=== PATIENT | male | born 1950 | race Caucasian/White ===

== ENCOUNTER → 2020-10-09 10:20 | Outpatient (BNVA) | payer OTHER, SELFPAY | PROVIDERS: Visit Provider Physician Assistant | DX: S69.91XA Unspecified injury of right wrist, hand and finger(s), initial encounter (principal); W10.9XXA Fall (on) (from) unspecified stairs and steps, initial encounter | CPT/HCPCS: 29125; 73110; 99203 ==

== ENCOUNTER → 2020-10-16 09:25 | Outpatient (BNVA) | payer OTHER, SELFPAY | PROVIDERS: Visit Provider Physician Assistant | DX: S69.91XA Unspecified injury of right wrist, hand and finger(s), initial encounter (principal); W10.9XXA Fall (on) (from) unspecified stairs and steps, initial encounter | CPT/HCPCS: 99213 ==

== ENCOUNTER 2021-07-01 23:23 | Emergency (ER) | payer OTHER, SELFPAY ==
--- NOTE | 2021-07-01 23:44 | ECG_ITS ---
Test Reason : DYSPNEA Blood Pressure : / mmHG Vent. Rate : 079 BPM Atrial Rate : 079 BPM P-R Int : 142 ms QRS Dur : 102 ms QT Int : 414 ms P-R-T Axes : 025 039 186 degrees QTc Int : 474 ms Sinus rhythm with Premature atrial complexes Left ventricular hypertrophy with repolarization abnormality ( [place] product ) Nonspecific ST and T wave abnormality Abnormal ECG No previous ECGs available Referred By: Tita Wasserman Electronically Signed By:ОЛЬГА CHOUDHARY MD
--- NOTE | 2021-07-01 23:54 | ED_ITS ---
HPI - Skin/Abscess/Foreign Bdy General Chief complaint: General Medical Stated complaint: bleeding from pacemaker site Time Seen by Provider: 07/01/21 23:28 Source: patient, EMS and old records reviewed (came with DC summary from [facility]) Mode of arrival: EMS Limitations: other (poor historian ) History of Present Illness HPI narrative: 70 yo male admitted to [facility] from 06/03 to 07/01 for NSTEMI with 4V CABG ?unsure date and biotronic PPM for SSS 05/27 on plavix - comes after being DC from [facility] today to STR they report multiple dressing changes and bleeding from PPM continued - at this time dressing is saturated. Reports no change in activity no trauma did not lift, does not remember hitting the area - denies bleeding issues from the PPM during time at [facility] MD complaint: other (bleeding from PPM) Onset (ago): hour(s) (after DC from [facility]) Location: chest Severity: moderate Quality: dull Relieving factors: other (dressings) Exacerbating factors: none Context: recent illness Associated symptoms: other (cough sweats) Treatments prior to arrival: bandages (multiple changes) Related Data Allergies Allergy/AdvReac Type Severity Reaction Status Date / Time Unable to Assess Allergy Verified 07/01/21 23:44 Review of Systems Review of Systems: Constitutional : No Weight loss, No Fever, No Chills, pos Fatigue, No Malaise, pos sweats ENT/Mouth : No sore throat, No Rhinorrhea Eyes: No Eye Pain, No Swelling, No Redness Cardiovascular : No Chest Pain, No SOB, pos Dyspnea on Exertion, No Orthopnea, No Edema, No Palpitations Respiratory : pos Cough, No Sputum, No Wheezing Gastrointestinal : No Nausea, No Vomiting, No Diarrhea, No Constipation, No abdominal Pain, No Hematochezia, No Melena Genitourinary : No Dysuria, No Urinary Frequency, No Hematuria, Musculoskeletal : No joint pain, No Myalgias, No Joint Swelling Skin : No Skin Lesions, No rash, pos bleeding PPM site Neuro : pos Weakness, No Numbness, No Dizziness, No Headache Psych : No Anxiety/Panic, No Depression Heme/Lymph: No Bruising, No Bleeding,No Lymphadenopathy Endocrine : No Polyuria, No Polydipsia All other systems reviewed and are negative PMFSH Past Medical History Source: old records reviewed Medical History (Updated 07/02/21 @ 00:41 by Tita Wasserman DO) CAD (coronary artery disease) CKD (chronic kidney disease) COPD (chronic obstructive pulmonary disease) Diverticulitis HLD (hyperlipidemia) HTN (hypertension) Ischemic cardiomyopathy Surgical History (Updated 07/01/21 @ 23:57 by Tita Wasserman DO) History of colon resection Social History Social History (Updated 07/01/21 @ 23:57 by Tita Wasserman DO) Patient Tobacco Use Status: Tobacco use Unknown Use of substances other than those prescribed or required for medical reasons: No Advance Directives: No Advance Directives Information Provided: Yes Physical Exam Vital Signs: Vital Signs: Last Vital Signs Temp 98.1 F 07/02/21 03:58 Pulse 66 07/02/21 03:58 Resp 15 07/02/21 03:58 BP 151/67 H 07/02/21 03:58 Pulse Ox 99 07/02/21 03:58 Body Mass Index 21.2 Appearance: Alert. Oriented X3. No acute distress. Eyes: Pupils equal, round and reactive to light. ENT: Pharynx normal. Neck: Normal inspection. Neck supple. CVS: Normal heart rate and rhythm. Pulses normal. Chest: sternal incision c/d/i. L chest wall saturated abdominal pads x2 with blood leaking under tegaderm cover on arrival to ED Respiratory: No respiratory distress. Breath sounds diminished at the bases Abdomen: Soft and nontender. Skin: Skin warm and dry. palel skin color. Normal skin turgor. Extremities: No lower extremity edema. Neuro: Oriented X 3. No motor deficit. No sensory deficit. Course Course Course Narrative: hemoglobin 8.0 was 9.6 this AM / Hct 23.6 bleeding persists through the abd dressings VS stable persistent bleeding - call to [facility] for possible transfer [id number] accepted to [facility] transfer but cardiac surgeon Dr. King is requesting we try further manual pressure for 30+ minutes and if this stops the bleeding he can be DC home - aware of drop in H/H from this AM. 45 minutes direct pressure still bleeding saturated 2 abd pads, has had 2 sterile dressing changes while in ED for 2 hrs 25 minutes notified transfer line of pending transfer bled through another dressing in our ED 3rd - 1 abd pad in ED 3 hr 22 min MDM - Skin/Abscess/Foreign Bdy MDM Narrative Medical decision making narrative: 70 yo male just DC from [facility] with prolonged stay involved CABG / PPM he comes in with c/o bleeding at the PPM site which was new since his arrival today at the [facility] - no DOAC, denies trauma, LUE NV intact, he has reportedly per his reports bled through at least 3 dressings and a weight at [facility]. Direct pressure was applied on arrival for 10+ minutes then bulky dressing under sterile technique. Will obtain labs. If his bleeding persists will discuss with [facility] for possible transfer. Lab Data Result diagrams: 07/01/21 23:50 07/01/21 23:50 Labs: Lab Results 07/01/21 07/01/21 07/01/21 Range/Units 23:50 23:50 23:50 WBC 9.2 (4.8-10.8) X10*3/uL RBC 2.61 L (4.60-5.80) X10*6/uL Hgb 8.0 L (14.0-18.0) g/dl Hct 23.6 L (42.0-52.0) % MCV 90.4 (80.0-98.0) fL MCH 30.7 (27.0-33.0) pg MCHC 33.9 (31.0-36.0) g/dl RDW 13.5 (11.0-16.0) % Plt Count 269 (160-400) X10*3/uL MPV 10.7 (9.4-12.4) fL Immature Gran % (Auto) 0.3 (0.0-0.4) % Neut % (Auto) 75.7 H (45-73) % Lymph % (Auto) 9.9 L (20-40) % Cavalier % (Auto) 9.0 (2-11) % Eos % (Auto) 4.1 H (0-4) % Baso % (Auto) 1.0 (0-2) % Lymph # (Auto) 0.9 L (1.2-4.9) X10*3/uL Cavalier # (Auto) 0.8 (0.1-1.2) X10*3/uL Eos # (Auto) 0.4 (0.0-0.4) X10*3/uL Baso # (Auto) 0.1 (0.0-0.2) X10*3/uL Abs Immat Gran (auto) 0.03 (0.00-0.03) X10*3/uL Absolute Neuts (auto) 7.0 (2.0-8.3) x10*3/uL Absolute Nucleated RBC 0.000 (0.0-0.012) X10*3/uL Nucleated RBC % (auto) 0.0 (0.0-0.2) /100WBC PT (9.9-13.0) SEC INR (0.9-1.1) APTT (24.1-38.0) SEC Sodium 135 (135-145) mmol/L Potassium 4.3 (3.3-5.1) mmol/L Chloride 98 (96-108) mmol/L Carbon Dioxide 30 H (22-29) mmol/L Anion Gap 11 L (12-20) BUN 30 H (9-16) mg/dL Creatinine 1.12 (0.5-1.4) mg/dL Estim Creat Clear Calc 55.9 Estimated GFR > 60 Random Glucose 127 H (60-115) mg/dL Lactic Acid (0.5-2.0) mmol/L Calcium 7.7 L (8.4-10.2) mg/dL Magnesium 1.8 (1.6-2.6) mg/dL Total Bilirubin 0.2 (0.0-1.0) mg/dL Direct Bilirubin 0.2 (0.0-0.5) mg/dL AST 20 (5-37) U/L ALT 18 (0-40) U/L Alkaline Phosphatase 60 (39-117) U/L B-Natriuretic Peptide 2632 H (<100) pg/mL Total Protein 4.7 L (6.5-8.0) g/dL Albumin 2.4 L (3.5-5.0) g/dL COVID-19 ([facility]ION) (Negative) COVID-19 Clin Com 07/01/21 07/01/21 07/01/21 Range/Units 23:50 23:54 23:54 WBC (4.8-10.8) X10*3/uL RBC (4.60-5.80) X10*6/uL Hgb (14.0-18.0) g/dl Hct (42.0-52.0) % MCV (80.0-98.0) fL MCH (27.0-33.0) pg MCHC (31.0-36.0) g/dl RDW (11.0-16.0) % Plt Count (160-400) X10*3/uL MPV (9.4-12.4) fL Immature Gran % (Auto) (0.0-0.4) % Neut % (Auto) (45-73) % Lymph % (Auto) (20-40) % Cavalier % (Auto) (2-11) % Eos % (Auto) (0-4) % Baso % (Auto) (0-2) % Lymph # (Auto) (1.2-4.9) X10*3/uL Cav[place]ier # (Auto) (0.1-1.2) X10*3/uL Eos # (Auto) (0.0-0.4) X10*3/uL Baso # (Auto) (0.0-0.2) X10*3/uL Abs Immat Gran (auto) (0.00-0.03) X10*3/uL Absolute Neuts (auto) (2.0-8.3) x10*3/uL Absolute Nucleated RBC (0.0-0.012) X10*3/uL Nucleated RBC % (auto) (0.0-0.2) /100WBC PT 11.7 (9.9-13.0) SEC INR 1.0 (0.9-1.1) APTT 30.1 (24.1-38.0) SEC Sodium (135-145) mmol/L Potassium (3.3-5.1) mmol/L Chloride (96-108) mmol/L Carbon Dioxide (22-29) mmol/L Anion Gap (12-20) BUN (9-16) mg/dL Creatinine (0.5-1.4) mg/dL Estim Creat Clear Calc Estimated GFR Random Glucose (60-115) mg/dL Lactic Acid 0.9 (0.5-2.0) mmol/L Calcium (8.4-10.2) mg/dL Magnesium (1.6-2.6) mg/dL Total Bilirubin (0.0-1.0) mg/dL Direct Bilirubin (0.0-0.5) mg/dL AST (5-37) U/L ALT (0-40) U/L Alkaline Phosphatase (39-117) U/L B-Natriuretic Peptide (<100) pg/mL Total Protein (6.5-8.0) g/dL Albumin (3.5-5.0) g/dL COVID-19 (ZION) Negative (Negative) COVID-19 Clin Com See Note ECG Data Attestation: I personally reviewed and interpreted this ECG as follows: ECG interpretation date: 07/02/21 ECG interpretation time: 00:10 Interpretation: Rate: 79 Rhythm: NSR , PACs Anderson: normal LVH Normal P waves. Normal ABDI. Poor R wave progression ST T wave : no ALEX, inverted in inv and lateral leads qTC: normal prior studies: none available The study has been interpreted contemporaneously by me. . Critical Care Time Critical Care Time Critical Care Time: Yes Total Critical Care Time: 45 Attestation: review of records, medical consult, transfer to tertiary center I attest to this time spent taking care of the patient Discharge Plan Discharge Clinical Impression: Pacemaker pocket hematoma, Anemia Patient Disposition: [facility] Transfer Details: [facility]
[2021-07-02] LABS: Basophils Absolute Auto 0.1 X10*3/uL (0.0-0.2); Eosinophils Absolute Auto 0.4 X10*3/uL (0.0-0.4); Eosinophils Percent Auto 4.1 % (0-4); Hematocrit 23.6 % (42.0-52.0); Imm Gran Abs Auto 0.03 X10*3/uL (0.00-0.03); Imm Gran Pct Auto 0.3 % (0.0-0.4); Lymphocytes Absolute Auto 0.9 X10*3/uL (1.2-4.9); Lymphocytes Percent Auto 9.9 % (20-40); MANUAL DIFF FLAG NO; Mean Corpuscular HGB Conc 33.9 g/dl (31.0-36.0); Mean Corpuscular Hemoglobin 30.7 pg (27.0-33.0); Mean Corpuscular Volume 90.4 fL (80.0-98.0); Mean Platelet Volume 10.7 fL (9.4-12.4); Monocytes Absolute Auto 0.8 X10*3/uL (0.1-1.2); Neutrophils Percent Auto 75.7 % (45-73); Platelet Count 269 X10*3/uL (160-400); Red Blood Count 2.61 X10*6/uL (4.60-5.80); Red Cell Distribution Width 13.5 % (11.0-16.0); White Blood Count 9.2 X10*3/uL (4.8-10.8)
[2021-07-02 00:03] VITALS: BP 141/71; PULSE 75; RESP 18; TEMP 36.9; O2SAT 98; BMI 21.2
[2021-07-02 00:09] VITALS: BP 136/62; PULSE 78; RESP 20; TEMP 36.8; O2SAT 98
[2021-07-02 00:11] LABS: Prothrombin Time 11.7 SEC (9.9-13.0)
[2021-07-02 00:13] LABS: Lactic Acid 0.9 mmol/L (0.5-2.0)
[2021-07-02 00:14] LABS: Partial Thromboplastin Time 30.1 SEC (24.1-38.0)
[2021-07-02 00:14] LABS: COVID-19 Test Negative (Negative); IDNOW Serial# 9DD0AD1C
[2021-07-02 00:19] LABS: Alanine Aminotransferase 18 U/L (0-40); Albumin Level 2.4 g/dL (3.5-5.0); Alkaline Phosphatase 60 U/L (39-117); Anion Gap 11 (12-20); Aspartate Amino Transferase 20 U/L (5-37); Bilirubin Direct 0.2 mg/dL (0.0-0.5); Bilirubin Total 0.2 mg/dL (0.0-1.0); Blood Urea Nitrogen 30 mg/dL (9-16); Calcium 7.7 mg/dL (8.4-10.2); Carbon Dioxide 30 mmol/L (22-29); Chloride 98 mmol/L (96-108); Creatinine Clr Calc Pharmacy 55.9; Estimated Glomerular Filt Rate > 60; Glucose Random 127 mg/dL (60-115); Magnesium 1.8 mg/dL (1.6-2.6); Potassium 4.3 mmol/L (3.3-5.1); Sodium 135 mmol/L (135-145); Total Protein 4.7 g/dL (6.5-8.0)
[2021-07-02 00:25] LABS: B Type Natriuretic Peptide 2632 pg/mL (<100)
[2021-07-02 00:31] VITALS: BP 142/62
--- NOTE | 2021-07-02 03:46 | PC.NURSE ---
THIS BED AND BREAKFAST OPERATOR CALLED [facility] AND WAS GIVEN A YEAST CULTURE DEVELOPER TIME OF 0900, NOT ACCEPTABLE FOR THIS TYPE OF TRANSFER. [facility] WAS CALLED AND ACCEPTED THE TRANSFER WITH A REASONABLE TRANSFER TIME
[2021-07-02 03:58] VITALS: BP 151/67; PULSE 66; RESP 15; TEMP 36.7; O2SAT 99
--- NOTE | 2021-07-02 04:17 | PC.NURSE ---
Pt remains alert and oriented x4, calm and cooperative. Pt denies pain. Pt states he feels weak and tired. Pt noted to be pale in color. Left sided pace maker site persistently bleeding. Dressings changed multiple times, sitter remained at bedside applying pressure to site while patient was here. Dressing freshly changed with EMS prior to leaving. 2 IV's remain intact. Vitals remain stable. Pt remains on 2 liters O2 nasal cannula. Report given to MARIA DEL ROSARIO Wei at [facility]. Pt left with EMS without issues.
== END 2021-07-02 04:19 | disposition short-term general hospital (02) ==
PROVIDERS: Emergency Provider Emergency Medicine; PCP Pediatrics
DX: L76.32 Postprocedural hematoma of skin and subcutaneous tissue following other procedure (principal); Y83.8 Other surgical procedures as the cause of abnormal reaction of the patient, or of later complication, without mention of misadventure at the time of the procedure; Y92.9 Unspecified place or not applicable; D64.9 Anemia, unspecified; I21.4 Non-ST elevation (NSTEMI) myocardial infarction; I12.9 Hypertensive chronic kidney disease with stage 1 through stage 4 chronic kidney disease, or unspecified chronic kidney disease; N18.9 Chronic kidney disease, unspecified; I25.10 Atherosclerotic heart disease of native coronary artery without angina pectoris; I25.5 Ischemic cardiomyopathy; Z79.02 Long term (current) use of antithrombotics/antiplatelets; Z95.0 Presence of cardiac pacemaker; Z20.822 Contact with and (suspected) exposure to COVID-19
CPT/HCPCS: 36415; 80048; 80076; 83605; 83735; 83880; 85025; 85610; 85730; 87635; 93005; 99285; 99291